=== PATIENT | male | born 1945 | race Caucasian/White ===

== ENCOUNTER 2017-01-08 12:03 | Observation (INO) | payer MEDICARE, OTHER ==
[~2017-01-08] VITALS: Ht 177.8 cm; Wt 90.5 kg
[2017-01-08 13:33] LABS: BASOPHILS 0.3 % (0.0-2.0); EOSINOPHILS 0.7 % (0-7); HEMATOCRIT 44.6 % (42.0-54.0); HEMOGLOBIN 14.9 g/dL (13.5-17.5); IMMATURE GRANULOCYTES 0.2 % (0-5); LYMPHOCYTES 15.9 % (15-50); MCHC 33.4 g/dL (31.0-37.0); MCV 92.7 fL (80.0-100.0); MEAN PLATELET VOLUME 10.9 fL (7.4-10.4); MONOCYTES 5.2 % (2-11); NEUTROPHILS 77.7 % (40-80); PLATELET COUNT 213 10x3/uL (130-400); RBC 4.81 10x6/uL (4.20-6.10); RDW 13.9 % (11.5-14.5); WBC 12.5 10x3/uL (4.8-10.8)
[2017-01-08 13:43] LABS: APTT 24.1 SECONDS (22.8-39.4); INR 1.06 (0.85-1.17); PROTIME 13.7 SECONDS (11.6-15.0)
[2017-01-08 14:03] LABS: ALBUMIN 4.1 g/dL (3.4-5.0); ALKALINE PHOSPHATASE 82 U/L (46-116); ALT (SGPT) 20 U/L (10-68); BILIRUBIN - TOTAL 0.53 mg/dL (0.2-1.3); CALC OSMOLALITY 284 mosm/kg (275-300); CALCIUM 9.4 mg/dL (8.5-10.1); CARBON DIOXIDE 24.1 mmol/L (21.0-32.0); CHLORIDE - SERUM 106 mmol/L (98-107); CREATININE - SERUM 0.8 mg/dL (0.6-1.3); GLUCOSE 91 mg/dL (74-106); POTASSIUM - SERUM 3.8 mmol/L (3.5-5.1); PROTEIN - SERUM 7.5 g/dL (6.4-8.2); SODIUM 143 mmol/L (136-145); UREA NITROGEN 12 mg/dL (7-18); eGFR NON AFRICAN AMERICAN > 90 mL/min (90-120)
[2017-01-08 14:14] LABS: CKMB 1.5 U/L (0.0-3.6); CREATINE KINASE 71 UL (21-232)
[2017-01-08 14:17] LABS: TROPONIN-I < 0.017 ng/mL (0.000-0.060)
[2017-01-08] MEDS ORDERED: ZETIA10 MG PO (17:55)
[2017-01-08] MEDS ORDERED: ZESTORETIC 10/11 TAB PO (17:55)
[2017-01-08] MEDS ORDERED: GEMFIBROZIL600 MG PO (17:58)
[2017-01-08] MEDS ORDERED: NITROQUICK0.4 MG SL (17:59)
--- NOTE | 2017-01-08 18:11 | NUR ---
PT RECUIEVED TO ROOM 2233 VIA WHEELCHAIR AWAKE AND ALERT ORINETD X 3 LUNGS CLAER BILATERALLY BSA X 4 QUADS BILATERAL HAND VEHICLE FARE COLLECTOR EQUAL MOVES ALL EXTREMITES TO COMMAND.
[2017-01-08 18:27] VITALS: BP 142/82; Ht 177.8 cm; Wt 90.5 kg
--- NOTE | 2017-01-08 19:00 | NUR ---
PATIENT IN BED WATCHING TV. HOB 40 DEGREES. AAOX4. RR EVEN AND UNLABORED. 0 S/S OF DISTRESS. DENIES PAIN AT THIS TIME. IV TO LEFT WRIST PATENT WITH NO REDNESS OR SWELLING. SRX1. BED LOW. CALL LIGHT WITHIN REACH.
[2017-01-08 20:01] VITALS: BP 116/68
[2017-01-08 20:30] LABS: CKMB 1.8 U/L (0.0-3.6); CREATINE KINASE 67 UL (21-232)
[2017-01-08 22:40] LABS: CKMB 1.6 U/L (0.0-3.6); CREATINE KINASE 58 UL (21-232); TROPONIN-I 0.027 ng/mL (0.000-0.060)
[2017-01-09] VITALS: BP 112/67
--- NOTE | 2017-01-09 03:53 | NUR ---
PATIENT SLEEPING WITH NO DISTRESS NOTED.
[2017-01-09 04:00] VITALS: BP 97/60
[2017-01-09 06:18] LABS: BASOPHILS 0.6 % (0.0-2.0); EOSINOPHILS 2.2 % (0-7); HEMATOCRIT 42.4 % (42.0-54.0); HEMOGLOBIN 14.2 g/dL (13.5-17.5); IMMATURE GRANULOCYTES 0.3 % (0-5); LYMPHOCYTES 25.9 % (15-50); MCH 31.2 pg (26.0-34.0); MCHC 33.5 g/dL (31.0-37.0); MCV 93.2 fL (80.0-100.0); MEAN PLATELET VOLUME 10.8 fL (7.4-10.4); MONOCYTES 7.8 % (2-11); NEUTROPHILS 63.2 % (40-80); PLATELET COUNT 199 10x3/uL (130-400); RBC 4.55 10x6/uL (4.20-6.10)
[2017-01-09 06:28] LABS: WBC 9.1 10x3/uL (4.8-10.8)
[2017-01-09 06:49] LABS: CALC OSMOLALITY 279 mosm/kg (275-300); CALCIUM 8.7 mg/dL (8.5-10.1); CARBON DIOXIDE 26.9 mmol/L (21.0-32.0); CHLORIDE - SERUM 106 mmol/L (98-107); CKMB 1.2 U/L (0.0-3.6); CREATINE KINASE 61 UL (21-232); CREATININE - SERUM 0.9 mg/dL (0.6-1.3); GLUCOSE 92 mg/dL (74-106); POTASSIUM - SERUM 3.7 mmol/L (3.5-5.1); SODIUM 141 mmol/L (136-145); TROPONIN-I 0.027 ng/mL (0.000-0.060); UREA NITROGEN 10 mg/dL (7-18); eGFR NON AFRICAN AMERICAN 88 mL/min (90-120)
--- NOTE | 2017-01-09 07:30 | NUR ---
RECIEVED PT DURING WALKING ROUNDS. PT RESTING IN BED WITH NO COMPLAINTS OF PAIN OR DISCOMFORT AT THIS TIME. ASSESSMENT DONE PER FLOWSHEET. BED IN LOW POSITION AND CALL LIGHT WITHIN REACH. WILL CONTINUE TO MONITOR.
[2017-01-09 07:57] VITALS: BP 116/72
[2017-01-09 11:10] VITALS: BP 100/71
--- NOTE | 2017-01-09 11:10 | NUR ---
SPOKE WITH PT AT THIS TIME ABOUT DISCHARGE AND INFORMED HIM WE WOULD SPEAK WITH THE DR WHEN HE MADE ROUNDS. PT UNDERSTOOD WILL CONTINUE TO MONITOR.
[2017-01-09] MEDS ORDERED: PROTONIX40 MG PO (12:07)
[2017-01-09] MEDS ORDERED: ASPIRIN325 MG PO (12:08)
--- NOTE | 2017-01-09 13:00 | NUR ---
PATIENT UP AMBULATING IN HALLWAY. NO SIGNS OF DISTRESS NOTED.
--- NOTE | 2017-01-09 13:23 | NUR ---
PT GIVEN DISCHARGE INSTRUCTIONS AT THIS TIME. IV REMOVED CATH INTACT. PT DISCHARGED VIA WHEELCHAIR TO HOME WITH A FAMILY MEMBER.
--- NOTE | 2017-01-14 08:06 | EC ---
PATIENT:TOMAS MOLINA DATE OF SERVICE: 01/08/17 SEX: M MEDICAL RECORD: [id number] DATE OF : 45 LOCATION:D.[facility] AGE OF PATIENT: 71 ADMISSION DATE: 01/08/17 REFERRING PHYSICIAN: INTERPRETING PHYSICIAN: JOHANNA PETERSEN MD ECHOCARDIOGRAM REPORT ECHO CHARGES 4 ECHO COMPLETE CLINICAL DIAGNOSIS: SYNCOPE ECHOCARDIOGRAPHIC MEASUREMENTS (adult normal given) AC root (d.<3.7cm) 3.5 LV Septum d (<1.2 cm> 1.6 Valve Excursion 2.2 LV Septum (systole) 2.3 Left Atria (s.<4.0cm> 3.7 LVPW d(<1.2cm) 1.6 RV (d.<2.3cm) 2.4 LVPW (sytole) 2.4 LV diastole(<5.6CM) 5.1 MV E-F(>70mm/sec) LV systole 2.5 LVOT Diameter 2.1 MV exc.(>10mm) Est.ejection fraction (50-75%) Pericardial Effusion N DOPPLER: LVIT A 118 E 81.0 LA RVSP 18.3 LVOT 112 AOP1/2T 542.0 Asc. Ao 139 RVOT 79.0 RA PA 101 AV Gradient Peak 7.7 AV Mean 3.8 AV Area 3.5 MV Gradient Peak 6.5 MV Mean 2.1 MV Area COMMENTS: Tire Spotter: Yannick MEDELLINOE Stock Layer:1 Dr. Petersen TAPE# PACS DATE OF SERVICE: 01/09/2017 Echocardiogram FINDINGS: 1. Left ventricular chamber size is within normal limits. Left ventricular systolic function is normal. Overall ejection fraction estimated at 60% to 65%. 2. Left atrium, right atrium, and right ventricle chamber sizes are within normal limits. Left atrium measures 3.7 cm. 3. Valvular structures have normal structure and motion. ECHOCARDIOGRAM REPORT [id number] TOMAS MOLINA 4. Doppler interrogation reveals mild to moderate aortic insufficiency. No other valvular insufficiency or stenosis and pulmonary systolic pressure is normal estimated at 18 mmHg. 5. No evidence of pericardial effusion or left ventricular thrombus. TRANSINT:[id number] Voice Confirmation ID: [id number] DOCUMENT ID: [id number] JOHANNA PETERSEN MD at 0806 CC: [id number] DICTATION DATE: 01/09/17 1438 OIL BURNER INSTALLER: 01/09/17 1522 DIS IN 01/09/17 [facility] [address] [id number]
== END 2017-01-09 16:18 | disposition home or self-care (01) ==
LOC: D.ER 12:03 → OBSVTIME 16:01 → D.MS 16:01
PROVIDERS: Emergency Medicine; Nurse Practitioner Acute Care; ADMIT Family Medicine
DX: G45.9 Transient cerebral ischemic attack, unspecified (principal); I95.1 Orthostatic hypotension; R07.9 Chest pain, unspecified; R53.1 Weakness; F17.203 Nicotine dependence unspecified, with withdrawal; E78.5 Hyperlipidemia, unspecified; I73.9 Peripheral vascular disease, unspecified; I10 Essential (primary) hypertension; J44.9 Chronic obstructive pulmonary disease, unspecified

== ENCOUNTER → 2017-01-20 11:54 | Outpatient (CLI) | payer MEDICARE, OTHER ==
[2017-01-08 18:27] VITALS: BMI 28.6
[~2017-01-20 11:54] MED LIST: ASPIRIN325 MG PO; GEMFIBROZIL600 MG PO; NITROQUICK0.4 MG SL; PROTONIX40 MG PO; ZESTORETIC 10/11 TAB PO; ZETIA10 MG PO
== END | disposition home or self-care (01) ==
LOC: D.CT 11:54
DX: I77.9 Disorder of arteries and arterioles, unspecified (principal)

== ENCOUNTER 2017-01-28 05:23 | Inpatient (IN) | payer MEDICARE, OTHER ==
--- NOTE | 2017-01-24 13:06 | HP ---
PATIENT: TOMAS MOLINA MEDICAL RECORD: [id number] ACCOUNT: [id number] LOCATION:[facility] : 45 ADMISSION DATE: 01/28/17 HISTORY AND PHYSICAL EXAMINATION NameTOMAS MOLINA (71yo, M) ID# [id number]. Date/Time01/20/2017 02:[id number]/194[facility] Dept.NPP[facility] ClinicProviderEDLB ALVA MDInsuranceMed Primary: [place] Insurance # : [id number] Referring Provider Name : CIRO LEON Employer Name : UNKNOWN Med Secondary: FOR LIFE ( - MEDICARE SUPPLEMENT) Insurance # : [id number] Employer Name : RETIRED Prescription: ESI1 - Member is eligible. Chief Complaint Carotid stenosis eval for carotid stenosis Patient's Care Team Referring Provider (): CIRO LEON: [address] [place] [address] , [address], [place] [address], , Patient's Pharmacies [facility] (ERX): [phone] [address], , [facility] (MAIL-ORDER, ERX): [address] [facility] [address], , [facility] (ERX): [address] [address], , Vitals BP:110/60 sitting L arm 01/20/2017 02:03 pm 90/50 sitting R arm 01/20/2017 02:04 pmBP Cuff Size:adult 01/20/2017 02:03 pm adult 01/20/2017 02:04 pmHR:76,reg 01/20/2017 02:05 pmHt:5 ft 10 in 01/20/2017 01:57 pmWt:195 lbs 01/20/2017 02:05 pmNotes:has had TIAs 5-6 years including double vision, blurred vision, unexpected nausea. Last had R sided paralysis and facial drooping, speech slurred. Lasted 6-7 minutes, then was resolved.01/20/2017 02:08 pmBMI:28 01/20/2017 02:05 pmAllergies Reviewed Allergies ASPIRIN: OtherINFLUENZA VIRUS VACCINESMedications Reviewed Medications amoxicillin 500 mg capsule Take 1 capsule(s) 3 times a day by oral route for 7 days.09/09/16 Artie Hammondfed DM 2 mg-30 mg-10 mg/5 mL syrup Take 10 mL every 4 hours by oral route as needed.09/09/16 Annie Leon MDbuPROPion HCl XL 150 mg 24 hr tablet, extended release Take 1 tablet EVERY DAY for 1 week, then take 1 tablet twice daily fqwgmtpeql79/11/16 Stef Hammondlopidogrel 75 mg tablet Take 1 tablet(s) every day by oral route.01/20/17 Nicole Taylorfibrozil 600 mg tablet TAKE 1 TABLET TWICE A DAY01/04/17 filledMEDCOisosorbide mononitrate ER 30 mg tablet,extended release 24 hr01/04/17 filledMEDCOlisinopril 20 mg-hydrochlorothiazide 12.5 mg /19/17 filledMEDCOLongs Adult Low Strength ASA 81 mg tablet,delayed release Take 1 tablet(s) every day by oral route.10/16/15 enteredCiro Leon MDmagnesium 250 mg tablet Take 1 tablet(s) every day by oral route.07/10/16 enteredLoren Erickson [place] HISTORY AND PHYSICAL [id number] TOMAS MOLINA Krill Oil 1 capsule daily07/10/16 enteredLoren Tellmetoprolol tartrate 25 mg tablet TAKE 1 TABLET TWICE A DAY01/04/17 filledMEDCOnitroglycerin 0.[address] 1 tablet(s) as needed by sublingual route.10/15/16 filledMEDCOpantoprazole 40 mg tablet,delayed kcihtre89/21/17 filledMEDCOpotassium gluconate 2.5 mEq tablet Take 1 tablet(s) every day by oral route.07/10/16 enteredLoren Tell takes unknown bp med bid as only meds Problems Reviewed Problems Hyperlipidemia Nicotine dependence Essential hypertension Coronary arteriosclerosis Carotid artery stenosis - Onset: 01/20/2017, Bilateral Peripheral vascular disease Sciatica Lumbar radiculopathy Family History Discussed Family History Father- ArthritisMother- Heart disease - Alcoholism - Cerebrovascular accidentMaternal Grandfather- Heart diseasestrong family history for cardiovas. diseaseSocial History Discussed Social History General Education: 2 Year College Marital status: Exercise level: Occasional Smoking Status: Current every day smoker (Notes: pack a day) Smoker (1 PPD) Alcohol intake: Occasional Caffeine intake: Heavy Surgical History Reviewed Surgical History Vascular Surgery - 2014 Past Medical History Discussed Past Medical History Bladder Problems: Y Chest Pain: Y Circulation Problems: Y Coronary Artery Disease: Y Diabetes: Y Dizzy Spells: Y Eye Problems: Y Heart Disease: Y - one stent High Blood Pressure: Y - one unknown med twice daily Pain in legs when walking: Y Peripheral Vascular Disease (PVD): Y - fem-fem bypass surg Rubella, Romansh Measles: Y Documents for Discussion N/A Screening HISTORY AND PHYSICAL [id number] TOMAS MOLINA None recorded. HPI Cerebral Vascular Disease Reported by patient. Quality: paresthesias; seeing double; dizziness; blurred vision Severity: complete loss of strength Duration: has noted for years Onset/Timing: weekly Associated Symptoms: vomiting; difficulty speaking recent episode of right hemiplegia Amaurosis fugax intermittently OS in spite of medical management ROS Patient reports vision change (OS) but reports no dry eyes and no irritation; amaurosis fugax left eye. He reports cough but reports no wheezing, no shortness of breath, and no coughing up blood. He reports no loss of consciousness, no weakness, no numbness, no seizures, no dizziness, and no headaches; recent episode her right hemiplegia aphasia Visual disturbances OS. He reports no fever, no night sweats, no significant weight gain, no significant weight loss, and no exercise intolerance. He reports no difficulty hearing and no ear pain. He reports no frequent nosebleeds and no nose/sinus problems. He reports no sore throat, no blee d ing gums, no snoring, no dry mouth, no mouth ulcers, no oral abnormalities, and no teeth problems. He reports no jugular vein distension and no swollen glands. He reports no chest pain, no arm pain on exertion, no shortness of breath when walking, no shor t ness of breath when lying down, no palpitations, and no known heart murmur. He reports no abdominal pain, no vomiting, normal appetite, no diarrhea, not vomiting blood, no nausea, and no constipation. He reports no incontinence, no difficulty urinating, n o hematuria, and no increased frequency. He reports no muscle aches, no muscle weakness, no arthralgias/joint pain, no back pain, and no swelling in the extremities. He reports no abnormal mole, no jaundice, and no rashes. He reports no depression, no slee p disturbances, feeling safe in relationship, and no alcohol abuse. He reports no fatigue. He reports no swollen glands and no bruising. He reports no runny nose, no sinus pressure, no itching, no hives, and no frequent sneezing. ROS as noted in the HPI Physical Exam Patient is a 71-year-old male. Constitutional: General Appearance well nourished and developed and healthy-appearing. Level of Distress NAD. Ambulation ambulating normally. Cardiovascular: Apical Impulse not displaced or no thrill. Heart Au scultation normal s1 and s2; no murmurs, rubs, or gallops; and RRR. Arterial Pulses no abdominal aorta bruits, femoral bruits, or popliteal bruits and 2+ bilateral, carotid 2+ bilateral, femoral 2+ bilateral, popliteal 2+ bilateral, and dorsalis pedis not palpable (bilaterally); decreased blood pressure right upper extremity 20 mm difference. Edema no edema or varicosities. Lungs: Repiratory Effort no dyspnea. Percussion no dullness or flatness and hyperresonance . Auscultation no wheezing, rhonchi, or rales / crackles and good air movement, CTA except as noted, and decreased breath sounds (bilateral). Abdomen: Bowl Sounds normal. Inspection and Palpation no tenderness, guarding, masses, or rebound tenderness and soft and non-distended. Liver non-tender and no HISTORY AND PHYSICAL [id number] TOMAS MOLINA hepatomegaly. Spleen non-tender and no splenomegaly. Hernia none palpable. Musculoskeletal System: Gait And Stance normal gait and stance. Digits and Nails normal nails and no cyanosis. Neurologic: Cranial Nerves grossly intact. Reflexes DTRs 2+ bilaterally throughout. Sensation grossly intact. Lymph Nodes: Lymph Nodes no cervical LAD, supraclavicular LAD, axillary LAD, or inguinal LAD. Eyes: Lids and Conjunctivae no discharge or pallor and non-injected. Pupils PERRLA. Cornea grossly intact. EOM EOMI. Lens clear. Sclerae non-icteric. Neck: Neck no masses or enlarged lymph nodes and supple, trachea midline, and carotid bruits (bilateral). Thyroid no enlargement or nodules and non-tender. Skin: Inspection and Palpation no rash, lesions, ulcers, jaundice, or abnormal nevi. Assessment / Plan bilateral carotid artery disease ruptured plaque on the left symptomatic Coronary artery disease Peripheral arterial disease Tobacco dependence 1. Carotid artery stenosis I65.29: Occlusion and stenosis of unspecified carotid artery CAROTID STENOSIS: CARE INSTRUCTIONS 2. Peripheral vascular disease I73.9: Peripheral vascular disease, unspecified PERIPHERAL ARTERIAL DISEASE OF THE LEG: CARE INSTRUCTIONS 3. Coronary arteriosclerosis I25.10: Atherosclerotic heart disease of [place] coronary artery without angina pectoris 4. Nicotine dependence F17.200: Nicotine dependence, unspecified, uncomplicated STOPPING SMOKING: CARE INSTRUCTIONS 5. Essential hypertension I10: Essential (primary) hypertension HIGH BLOOD PRESSURE: CARE INSTRUCTIONS LEARNING ABOUT HIGH BLOOD PRESSURE Discussion Notes the patient had a recent episode of right hemiplegia and aphasia and amaurosis fugax OS. He has moderately severe disease bilaterally with a ruptured plaque in the left. He continues to have symptoms despite his medical management. He does not want to take Plavix however He will for a short period of time. He would like to undergo left carotid endarterectomy . I have discussed his disease process with him in detail a s well as the alternative methods of treatment. He discussed left carotid endarterectomy including the expected benefits and risk which included bleeding, infection, stroke, loss of limb, and . He understands all of HISTORY AND PHYSICAL [id number] TOMAS MOLINA the above and wishes to proceed wi th left carotid endarterectomy. PANCHO ALVA MD at 1306 CC: [id number] DICTATION DATE: 01/20/17 1400 CODE NUMBER STAMPER: GARRETT 01/23/17 0830 [id number] [place] [id number]
[2017-01-27 10:40] LABS: HEMATOCRIT 43.5 % (42.0-54.0); HEMOGLOBIN 14.7 g/dL (13.5-17.5); MCH 31.3 pg (26.0-34.0); MCHC 33.8 g/dL (31.0-37.0); MCV 92.8 fL (80.0-100.0); MEAN PLATELET VOLUME 9.9 fL (7.4-10.4); RBC 4.69 10x6/uL (4.20-6.10); RDW 13.4 % (11.5-14.5); WBC 8.2 10x3/uL (4.8-10.8)
[2017-01-27 10:49] LABS: APPEARANCE CLEAR (CLEAR); BILIRUBIN NEGATIVE (NEGATIVE); COLOR YELLOW (YELLOW); GLUCOSE NEGATIVE (NEGATIVE); KETONE NEGATIVE (NEGATIVE); LEUKOCYTE ESTERASE NEGATIVE (NEGATIVE); NITRITE NEGATIVE (NEGATIVE); PROTEIN NEGATIVE (NEGATIVE); SPECIFIC GRAVITY 1.015 (1.005-1.020); UROBILINOGEN NORMAL (NORMAL)
[2017-01-27 11:00] LABS: ALBUMIN 3.9 g/dL (3.4-5.0); ALKALINE PHOSPHATASE 82 U/L (46-116); ALT (SGPT) 23 U/L (10-68); CALC OSMOLALITY 283 mosm/kg (275-300); CALCIUM 8.9 mg/dL (8.5-10.1); CARBON DIOXIDE 30.1 mmol/L (21.0-32.0); CHLORIDE - SERUM 105 mmol/L (98-107); GLUCOSE 117 mg/dL (74-106); PROTEIN - SERUM 7.4 g/dL (6.4-8.2); SODIUM 142 mmol/L (136-145); UREA NITROGEN 12 mg/dL (7-18); eGFR NON AFRICAN AMERICAN 78 mL/min (90-120)
[2017-01-27 11:03] LABS: INR 1.04 (0.85-1.17); PROTIME 13.4 SECONDS (11.6-15.0)
[2017-01-28] VITALS (18 sets, daily range): BP systolic 102–139; BP diastolic 60–80; Ht 177.8 cm; Wt 92.5 kg
[~2017-01-28] VITALS: Ht 177.8 cm; Wt 92.5 kg
[~2017-01-28 05:23] MED LIST changes: +ASPIRIN EC81 M1 PO; +PLAVIX75 MG PO
--- NOTE | 2017-01-28 11:13 | NUR ---
RECIEVED PT TO ROOM FROM OR. ATTACHED TO CM. VSS AT THIS TIME. LEFT NECK DRESSING C/D/I. MINIAMAL SWELLING NOTED. ICE PACK PLACED OVER INCISION SITE. RECIEVING O2 VIA SIMPLE MASK AT 9L. R-DLSC DRESSING C/D/I INFUSING PLASMALTYE AT 100CC/HR. ARTERIAL LINE IN PLACE TO LEFT RADIAL. HAND WITH GOOD SENSATION AND WARM TO TOUCH. F/C PATENT TO GRAVITY. NICOLAS/SCDS IN PLACE. INVOS MONITOR READING L- 82 AND R- 83. ASSESSMENT COMPLETE PER FLOWSHEET. WILL CONT TO ASSESS FOR CHANGES THROUGHOUT SHIFT. CALL LIGHT IN REACH. BED IN LOW POSITION.
--- NOTE | 2017-01-28 11:30 | NUR ---
AT BEDSIDE. UPDATE PROVIDED PER DR. ALVA.
--- NOTE | 2017-01-28 12:30 | NUR ---
F/C REMOVED PER ORDERS OF DR. ALVA. CATH INTACT. NO ISSUES NOTED UPON REMOVAL.
--- NOTE | 2017-01-28 13:00 | NUR ---
FRESH ICE PACK PLACED OVER INCISION. OFFERED SOME WATER. DENIES FURTHER NEEDS. CALL LIGHT IN REACH.
--- NOTE | 2017-01-28 13:00 | NUR ---
PT RESTING QUIETLY AT THIS TIME. DENIES NEEDS. CALL LIGHT IN REACH.
--- NOTE | 2017-01-28 15:00 | NUR ---
REASSSESMENT COMPLETE PER FLOWSHEET. NO CHANGE NOTED AT THIS TIME.
--- NOTE | 2017-01-28 17:00 | NUR ---
DINNER PLACED ON BEDSIDE TABLE. FRESH ICE WATER PROVIDED.
--- NOTE | 2017-01-28 19:20 | NUR ---
REPORT REC'D AND CARE ASSUMED, REC'D PT RESTING IN BED ON O2 @ 5LITERS VIA NC, AWAKENS TO VERBAL STIMULI, ORIENTED X 4, TONGUE MIDLINE, BILAT PIECE PRESSER EQUAL AND STRONG, RDLSCL DRSG CDI WITH PLASMALYTE @ 30CC/HR AND ZINACEF @ 11.4CC/HR, LEFT RADIAL ANNABELLE WITH FLEXION BOARD IN USE, LEVELED AND ZEROED WITH RETURN OF APPROPRIATE WAVEFORM, PT DENIES PAIN OR NEEDS, SR UP X 2, BED IN LOW POSITION, CALL LIGHT IN REACH.
--- NOTE | 2017-01-28 21:10 | NUR ---
EVENING MEDS GIVEN, NO VISITORS IN AT THIS TIME.
--- NOTE | 2017-01-28 23:20 | NUR ---
REASSESSMENT COMPLETED, PT PROVIDED PT GUIDE FOR TV CHANNELS AVAILABLE, 175 EMPTIED FROM URINAL, BILAT GLUING MACHINE OPERATOR AUTOMATIC EQUAL AND STRONG, TONGUE MIDLINE, PT DENIES PAIN, VSS, WILL MONITOR FOR CHANGES.
[2017-01-29] VITALS (15 sets, daily range): BP systolic 108–150; BP diastolic 60–80
--- NOTE | 2017-01-29 00:15 | NUR ---
PT AWAKE WATCHING TV, RESTLESS IN BED, STATES " MY NECK, HEAD, AND BACK ARE STARTING TO ACHE", TRAMADOL GIVEN FOR DISCOMFORT, PT REPOSITIONED SELF UP IN BED, ICE WATER PROVIDED ON REQUEST
--- NOTE | 2017-01-29 02:00 | NUR ---
PT SLEEPING SOUNDLY AT THIS TIME, VSS, VISIBLE TO NURSES STATION.
--- NOTE | 2017-01-29 03:30 | NUR ---
REASSESSMENT COMPLETED, NO CHANGES FROM PREVIOUS ASSESSMENT, VSS
--- NOTE | 2017-01-29 04:30 | NUR ---
NO CHANGES IN STATUS.
--- NOTE | 2017-01-29 05:50 | NUR ---
CINDI HARDY AT BS, DELANEY DRAIN DC'D USING STERILE TECHNIQUE, PRESSURE HELD SITE COVERED WITH 2X2'S X 2 AND TEGADERM, PT TOLERATED PROCEDURE WELL.
--- NOTE | 2017-01-29 06:00 | NUR ---
PT RESTING QUIETLY WATCHING TV, VSS, NO VISITORS IN AT THIS TIME, LEFT UPPER CHEST DRSG CDI
--- NOTE | 2017-01-29 07:15 | NUR ---
REPORT RECIEVED FROM POLICE ACADEMY INSTRUCTOR NURSE. PT RESTING QUIETLY. NO S/SX OF ACUTE DISTRESS NOTED AT THIS TIME. ASSESMENT COMPELTE PER FLOWSHEET. CALL LIGHT IN REACH. BED IN LOW POSITION. WILL CONT TO ASSESS.
--- NOTE | 2017-01-29 09:00 | NUR ---
DR. ALVA AT BEDSIDE. INSTRUCTED TO REMOVE A-LINE. 0915- ANNABELLE REMOVED. CATH INTACT. PRESSURE APPLIED FOR 3 MIN. OPSITE DRESSING PLACED OVER SITE. NO F/C.
--- NOTE | 2017-01-29 12:00 | NUR ---
AT BEDSIDE. UPDATE PROVIDED.
--- NOTE | 2017-01-29 15:00 | NUR ---
DISCHARGE INSTRUCTIONS REVIEWED WITH PT. VERBALIZED UNDERSTANDING. QUESTIONS ANSWERED. R DL SC REMOVED PER ORDERS. CATH INTACT. NO ISSUES NOTED UPON REMOVAL. OPSISTE DRESSING PLACED OVER SITE.
--- NOTE | 2017-01-29 15:16 | NUR ---
PT DRESSED AND READY TO GO. AT FRONT ENTRANCE WITH VEHICLE. WILL TRANSPORT VIA W/C.
--- NOTE | 2017-01-29 17:21 | OP ---
PATIENT NAME: TOMAS MOLINA [facility] MEDICAL RECORD: [id number] :45 LOCATION:[facility] ADMISSION DATE:01/28/17 SURGEON: PHILLIP ALVA MD DATE OF OPERATION: 01/28/2017 SURGEON: Phillip Alva MD. ANESTHESIA: General endotracheal, Dr. Lombardi. OPERATION PERFORMED: Left carotid endarterectomy with patch angioplasty. PREOPERATIVE DIAGNOSIS: Symptomatic left carotid artery disease. POSTOPERATIVE DIAGNOSIS: Severe stenosis of the left internal carotid artery with ruptured plaque and multiple areas of old ulceration and one area of fresh clot. INDICATION FOR OPERATION: Symptomatic carotid stenosis. FINDINGS OF THE OPERATION: The left carotid plaque was severely stenotic as well as multiple areas of ruptured plaque. There was also heavily calcified plaque. ESTIMATED BLOOD LOSS: Less than 100 mL. DESCRIPTION OF PROCEDURE: After informed consent, adequate preoperative medication and evaluation, the patient was brought to the operating room, placed on the table in the supine position. After induction of general endotracheal anesthesia and application of appropriate monitoring devices, the left neck and chest were prepped and draped in a sterile field, utilizing Betadine scrub, alcohol and Betadine solution, a Betadine-impregnated drape was also used. An oblique incision was made in the skin crease. Dissection was carried down the fascia. Hemostasis maintained with electrocautery. The facial vein was divided and ligated. The common carotid, internal and external carotid arteries were dissected free from surrounding structures, protecting the neurological structures. The plaque progressed well into the internal carotid artery. The patient was given a calculated dose of heparin after 3 minutes, clamps were applied after 2 minutes and no EEG changes. The arteriotomy was made and extended with Leal scissors. Artery underwent endarterectomy sharply. The distal end had continued plaque, the clamp had to be further cephalad and the arteriotomy extended. This last remainder of plaque was removed and feathered out nicely. The artery was irrigated and underwent extensive debridement utilizing a CorMatrix vascular patch and running 7-0 Prolene suture. The arteriotomy was closed with patch angioplasty technique. All maneuvers to remove trapped air were performed. The clamps were removed sequentially. There was no EEG change. The patient was given a calculated dose of protamine to reverse the heparin. Hemostasis was achieved. The wound was irrigated with copious amounts of antibiotic solution and normal saline. There was no active bleeding. Instrument count and sponge count were correct times 2. A #7 Franck-Bolden drain was left in the depth of wound and brought through the base of the neck. Neck was again irrigated. Instrument count and sponge counts were correct. Neck was closed in layers utilizing 3-0 Vicryl on the platysma and 5-0 subcuticular Monocryl on the skin. Sterile dressings were applied. The patient tolerated the procedure well and was transferred to cardiovascular recovery in satisfactory condition. OPERATIVE REPORT [id number] TOMAS MOLINA TRANSINT:[id number] Voice Confirmation ID: [id number] DOCUMENT ID: [id number] PHILLIP ALVA MD at 1721 CC: [id number] DICTATION DATE: 01/28/17 1111 PARTS PERSON: 01/28/17 1816 DIS IN 01/29/17 [id number] [place] [address]
== END 2017-01-29 15:19 | disposition home or self-care (01) | DRG 39 ==
LOC: D.SDCHOLD 05:23 → D.CVICU 05:23 → D.SDCHOLD 07:30 → D.CVICU 11:16
PROVIDERS: ADMIT Internal Medicine Cardiovascular Disease
PROC: 03UL0JZ Supplement Left Internal Carotid Artery with Synthetic Substitute, Open Approach (ICD-10-PCS; 2017-01-28)
PROC: 03CL0ZZ Extirpation of Matter from Left Internal Carotid Artery, Open Approach (ICD-10-PCS; principal; 2017-01-28 07:30)
DX: I65.22 Occlusion and stenosis of left carotid artery (principal); E11.9 Type 2 diabetes mellitus without complications; R55 Syncope and collapse; I25.10 Atherosclerotic heart disease of native coronary artery without angina pectoris; Z95.5 Presence of coronary angioplasty implant and graft; I73.9 Peripheral vascular disease, unspecified; I10 Essential (primary) hypertension; F17.200 Nicotine dependence, unspecified, uncomplicated

== ENCOUNTER → 2020-04-24 | Emergency (ER) | payer MEDICARE, OTHER ==
[2017-01-28 11:54] VITALS: Ht 177.8 cm; Wt 113.6 kg
[~2020-04-24] VITALS: Ht 177.8 cm; Wt 113.6 kg
[2020-04-24 12:51] LABS: BASOPHILS 0.1 % (0-2); EOSINOPHILS 0.5 % (0-7); HEMATOCRIT 37.9 % (42.0-54.0); HEMOGLOBIN 11.6 g/dL (13.5-17.5); IMMATURE GRANULOCYTES 1.6 % (0-5); LYMPHOCYTES 4.4 % (15-50); MCH 30.1 pg (26.0-34.0); MCHC 30.6 g/dL (31.0-37.0); MCV 98.2 fL (80.0-100.0); MEAN PLATELET VOLUME 9.1 fL (7.4-10.4); MONOCYTES 3.9 % (2-11); NEUTROPHILS 89.5 % (40-80); RBC 3.86 10x6/uL (4.20-6.10); RDW 13.8 % (11.5-14.5)
[2020-04-24 12:54] LABS: BILIRUBIN NEGATIVE (NEGATIVE); GLUCOSE NEGATIVE (NEGATIVE); KETONE NEGATIVE (NEGATIVE); NITRITE NEGATIVE (NEGATIVE); UROBILINOGEN NORMAL (NORMAL)
[2020-04-24 12:55] LABS: CALC OSMOLALITY 281 mosm/kg (275-300); CALCIUM 8.6 mg/dL (8.5-10.1); CARBON DIOXIDE 39.3 mmol/L (21.0-32.0); CHLORIDE - SERUM 102 mmol/L (98-107); CREATININE - SERUM 1.2 mg/dL (0.6-1.3); GLUCOSE 133 mg/dL (74-106); PLATELET COUNT 406 10x3/uL (130-400); POTASSIUM - SERUM 5.5 mmol/L (3.5-5.1); SODIUM 138 mmol/L (136-145); UREA NITROGEN 24 mg/dL (7-18); eGFR NON AFRICAN AMERICAN 63 mL/min (90-120)
[2020-04-24 12:56] LABS: APTT 32.3 SECONDS (22.8-39.4); INR 1.99 (0.85-1.17); PROTIME 22.3 SECONDS (11.6-15.0)
[2020-04-24 13:20] LABS: ALBUMIN 2.6 g/dL (3.4-5.0); ALKALINE PHOSPHATASE 88 U/L (30-120); ALT (SGPT) 75 U/L (10-68); BILIRUBIN - TOTAL 0.56 mg/dL (0.2-1.3); CKMB 1.5 U/L (0.0-3.6); CREATINE KINASE 33 UL (21-232); MAGNESIUM - SERUM 2.4 mg/dL (1.8-2.4); PROTEIN - SERUM 5.7 g/dL (6.4-8.2); THYROID STIMULATING HORMONE 6.47 uIU/mL (0.36-3.74)
[2020-04-24 13:24] LABS: TROPONIN-I 0.073 ng/mL (0.000-0.060)
[2020-04-24 13:32] VITALS: BP 136/63
== END ==
LOC: D.ER 12:13
PROVIDERS: Family Medicine
DX: J96.91 Respiratory failure, unspecified with hypoxia (principal); J81.1 Chronic pulmonary edema; Z86.73 Personal history of transient ischemic attack (TIA), and cerebral infarction without residual deficits; I10 Essential (primary) hypertension

== ENCOUNTER 2020-05-03 14:00 | Inpatient (IN) | payer MEDICARE, OTHER ==
[~2020-05-03] VITALS: Ht 177.8 cm; Wt 86.2 kg
[2020-05-03 18:06] VITALS: BP 159/75; BMI 27.3
--- NOTE | 2020-05-04 04:59 | NUR ---
PT DRSG TO CHANGE RIGHT SIDE YELLOW EXUDATE NOTED, DRSG TO LEFT SIDE DRIED BLOOD HEALING WELL, DID NOT REMOVE PRESSURE DRSG TO RIGHT GROIN, CLEANED CHEST DRSG WITH WOUND JEWEL BEARING TURNER REDRESSED WITH 4X4 GAUZE AND TAPE
[2020-05-04 06:58] LABS: BASOPHILS 0.7 % (0-2); EOSINOPHILS 5.5 % (0-7); HEMOGLOBIN 12.3 g/dL (13.5-17.5); IMMATURE GRANULOCYTES 0.2 % (0-5); LYMPHOCYTES 15.5 % (15-50); MCH 29.8 pg (26.0-34.0); MCHC 31.5 g/dL (31.0-37.0); MCV 94.4 fL (80.0-100.0); MEAN PLATELET VOLUME 9.7 fL (7.4-10.4); MONOCYTES 9.1 % (2-11); RBC 4.13 10x6/uL (4.20-6.10); RDW 13.6 % (11.5-14.5); WBC 10.5 10x3/uL (4.8-10.8)
[2020-05-04 06:59] LABS: PLATELET COUNT 250 10x3/uL (130-400)
[2020-05-04 07:41] LABS: ANION GAP 9.9 mmol/L (8-16); CALCIUM 8.8 mg/dL (8.5-10.1); CARBON DIOXIDE 33.1 mmol/L (21.0-32.0); CREATININE - SERUM 1.3 mg/dL (0.6-1.3)
[2020-05-04 07:54] VITALS: BP 132/65
[2020-05-04 12:39] VITALS: Ht 177.8 cm; Wt 86.2 kg
[2020-05-04 20:00] VITALS: BP 156/66
--- NOTE | 2020-05-04 20:00 | NUR ---
PATIENT RECEIVED SITTING UP IN BED WATCHING TV. ASSESSMENT & VITAL SIGNS DONE. NO C/O PAIN OR DISTRESS AT THIS TIME. URINAL & CALL LIGHT WITHIN REACH. WILL CONTINUE TO MONITOR.
--- NOTE | 2020-05-05 01:31 | NUR ---
PATIENT EYES CLOSED. RESPIRATIONS 18 & EVEN. MELATONIN EFFECTIVE AT THIS TIME. BED LOW. ALARM ON. URINAL & CALL LIGHT WITHIN REACH. WILL CONTINUE TO MONITOR.
--- NOTE | 2020-05-05 02:05 | NUR ---
I have reviewed this patient and I concur with the Shift Assessment completed by the Licensed Practical Nurse today this shift.
--- NOTE | 2020-05-05 05:54 | NUR ---
PATIENT EYES CLOSED. RESPIRATIONS 18 & EVEN. BED LOW. CALL LIGHT WITHIN REACH. WILL CONTINUE TO MONITOR.
[2020-05-05 08:00] VITALS: BP 121/69
--- NOTE | 2020-05-05 11:59 | NUR ---
SITTING UP IN WC IN ROOM TALKING TO ROOM MATE. DENIES PAIN OR INCREASED SOB.
--- NOTE | 2020-05-05 20:00 | NUR ---
PATIENT RECEIVED SITTING UP IN BED WATCHING TV. ASSESSMENT & VITAL SIGNS DONE. NO C/O PAIN OR DISTRESS. ALL WOUNDS DRY & HAS SCABS. BED LOW. ALARM ON. CALL LIGHT WITHIN REACH. WILL CONTINUE TO MONITOR.
[2020-05-05 20:18] VITALS: BP 153/74
--- NOTE | 2020-05-06 02:09 | NUR ---
I have reviewed this patient and I concur with the Shift Assessment completed by the Licensed Practical Nurse today this shift.
--- NOTE | 2020-05-06 02:26 | NUR ---
PATIENT EYES CLOSED. RESPIRATIONS 18 & EVEN. BED LOW. ALARMON. CALL LIGHT WITHIN REACH. WILL CONTINUE TO MONITOR.
[2020-05-06 08:00] VITALS: BP 131/65
--- NOTE | 2020-05-06 17:20 | NUR ---
LAYING IN BED WATCHING TV. DENIES SOB OR CHEST PAIN. CHEST INCISION IS OPEN TO AIR. CALL LIGHT IN REACH
[2020-05-06 19:46] VITALS: BP 123/84
--- NOTE | 2020-05-06 20:00 | NUR ---
PATIENT RECEIVED SITTING UP IN BED WATCHING TV. ASSSESSMENT & VITAL SIGNS DONE. BED LOW. URINAL & CALL LIGHT WITHIN REACH. WILL CONTINUE TO MONITOR.
--- NOTE | 2020-05-07 03:25 | NUR ---
I have reviewed this patient and I concur with the Shift Assessment completed by the Licensed Practical Nurse today this shift.
[2020-05-07 07:43] LABS: BASOPHILS 0.5 % (0-2); HEMATOCRIT 38.3 % (42.0-54.0); HEMOGLOBIN 11.7 g/dL (13.5-17.5); IMMATURE GRANULOCYTES 0.3 % (0-5); LYMPHOCYTES 13.5 % (15-50); MCH 28.8 pg (26.0-34.0); MCHC 30.5 g/dL (31.0-37.0); MCV 94.3 fL (80.0-100.0); MEAN PLATELET VOLUME 9.8 fL (7.4-10.4); MONOCYTES 6.7 % (2-11); PLATELET COUNT 298 10x3/uL (130-400); RBC 4.06 10x6/uL (4.20-6.10); RDW 13.4 % (11.5-14.5); WBC 10.2 10x3/uL (4.8-10.8)
[2020-05-07 08:13] LABS: ANION GAP 8.9 mmol/L (8-16); CALCIUM 8.9 mg/dL (8.5-10.1); CARBON DIOXIDE 30.8 mmol/L (21.0-32.0); CREATININE - SERUM 1.3 mg/dL (0.6-1.3); DIGOXIN 0.72 ng/mL (0.90-2.00); POTASSIUM - SERUM 4.7 mmol/L (3.5-5.1)
[2020-05-07 08:14] VITALS: BP 178/82
--- NOTE | 2020-05-07 08:21 | NUR ---
ALERT, SITTING IN WC EATING BREAKFAST. NO DISTRESS NOTED.
--- NOTE | 2020-05-07 12:37 | NUR ---
SITTING IN WC EATING LUNCH. NO C/O PAIN. CL IN REACH. O2 DURING THERAPY ON 2L WAS 94. ON RA WHILE AMBULATING O2 SAT WAS 91. TRYING TO WEAN OFF OXYGEN PER DR GONZALEZ. OXYGEN AT 1L SITTING IN CHAIR.
--- NOTE | 2020-05-07 17:51 | NUR ---
NO CHANGE IN ASSESSMENT.SITTING IN WC EATING DINNER. NO DISTRESS NOTED. CL IN REACH.
[2020-05-07 20:20] VITALS: BP 154/70
--- NOTE | 2020-05-07 20:20 | NUR ---
ASSESSMENT PER FLOW SHEET, VS OBTAINED, PT REPROTS FLATUS, BM TODAY AND USING URINAL WITH NO DIFFICULTY, PT DENIES NEEDS OR PAIN AT THIS TIME, FALL PRECAUTIONS IN PLACE
--- NOTE | 2020-05-07 21:56 | NUR ---
PT RESTING WITH EYES CLOSED, AROUSES TO SOFT VERBAL STIMULATION, ADM 2100 MEDS PO PER MD ORDERS, SEE EMAR, WITH FRESH H20, PT REQUESTED AND PROVIDED WARM BLANKET, DENIES FURTHER NEEDS OR PAIN
--- NOTE | 2020-05-07 22:33 | NUR ---
PT RESTING WITH EYES CLOSED, RESP QUIET, NO DISTRESS NOTED, LEFT UNDISTURBED AT THIS TIME, FALL PRECAUTIONS IN PLACE
--- NOTE | 2020-05-08 00:30 | NUR ---
PT RESTING WITH EYES CLOSED, RESP QUIET, NO DISTRESS NOTED, LEFT UNDISTURBED AT THIS TIME, FALL PRECAUTIONS IN PLACE
--- NOTE | 2020-05-08 02:45 | NUR ---
PT SITTING UP IN WC AT THIS TIME, REPORTS THAT HE IS READY TO GET BACK INTO BED, PT BACK TO BED PER SELF, GAIT STEADY, EMPTIED 150MLS OF MOD YELLOW URINE FROM URINAL, PT DENIES FURTHER NEEDS OR PAIN, FALL PRECAUTIONS IN PLACE
--- NOTE | 2020-05-08 04:30 | NUR ---
PT RESTING WITH EYES CLOSED, RESP QUIET, NO DISTRESS NOTED, LEFT UNDISTURBED AT THIS TIME, FALL PRECAUTIONS IN PLACE, EMPTIED 325 FROM URINAL
--- NOTE | 2020-05-08 05:37 | NUR ---
PT REPORTS A LITTLE PAIN FROM HEALING CHEST TUBE INC, DRESSING CHANGED, PT DENIES FURTHER NEEDS
--- NOTE | 2020-05-08 07:30 | NUR ---
AWAKE.DENIES NEEDS.INCISION TO STERNUM HEALING WELL.WILL CONTINUE WITH CURRENT PLAN OF CARE.CL N EASY REACH,BED IN LOW POSITION.BED ALARM ON AND WORKING.
[2020-05-08 08:00] VITALS: BP 154/88
--- NOTE | 2020-05-08 16:27 | NUR ---
PATIENT ADMITTED TO [facility] FROM [facility]. DR. LEON IS HIS PCP. DISCHARGE PLANS ARE FOR PATIENT TO RETURN HOME . WILL CONTINUE TO FOLLOW WITH PATIENT.
[2020-05-08 19:26] VITALS: BP 118/70
--- NOTE | 2020-05-08 19:51 | NUR ---
RECIEVED UP IN BED WITH EYES OPEN AND TV ON. ALERT AND ORIENTED X4. UP AD TREMAYNE TO B/R. AKUTAN. POST CABG WITH SCATTERED SCABED AREAS ACROSS CHEST. VOICES EXCITMENT ABOUT GOING HOME TOMORROW. DENIES ANY NEEDS OR PAIN.
--- NOTE | 2020-05-09 08:00 | NUR ---
SITTING UP IN WC IN ROOM FOR BREAKFAST. DENIES NEEDS OR C/O. CHEST INCISION IS INTACT WITH NO S/S INFECTION. TEACHING DONE WITH PT REGUARDING STERNAL PRECAUTIONS. HE STATES UNDERSTANDING
[2020-05-09 08:27] VITALS: BP 155/70
--- NOTE | 2020-05-09 10:59 | NUR ---
SITTING UP IN WC IN ROOM. IS SCHEDULED TO DC TODAY
[2020-05-09] MEDS ORDERED: LIPITOR20 MG PO (12:03)
[2020-05-09] MEDS ORDERED: ELIQUIS5 MG PO (12:03)
[2020-05-09] MEDS ORDERED: LANOXIN125 MCG PO (12:03)
[2020-05-09] MEDS ORDERED: LASIX40 MG PO (12:04)
[2020-05-09] MEDS ORDERED: K-DUR20 MEQ PO (12:04)
--- NOTE | 2020-05-09 12:05 | RHP ---
PATIENT: TOMAS MOLINA [facility] MEDICAL RECORD: [id number] ACCOUNT: [id number] LOCATION:[facility]1119 : 45 ADMISSION DATE: 05/03/20 REHABILITATION HISTORY AND PHYSICAL EXAMINATION POST ADMISSION PHYSICIAN EXAMINATION ADMITTING DIAGNOSIS: Subclavian stenosis and respiratory distress. HISTORY OF PRESENT ILLNESS: The patient is a 74-year-old gentleman who is status post coronary artery bypass grafting times 4. The patient had problems with some subclavian stenosis. He was discharged home on 04/19/2020 and was doing well until a few days prior to this right before he had been having worsening dyspnea on exertion and orthopnea. Called EMS, he was brought to the ED. He had been intubated upon transfer. They were unable to get a good blood pressure on him at arrival secondary to subclavian stenosis. Therefore, an A-line was placed. Chest x-ray showed large bilateral pleural effusions. The patient had bilateral chest tubes placed. The patient had a COVID test, which was negative. His blood counts actually looked pretty good. He was noted to have some elevation of his white count during his stay, but this actually trended down. On 05/01/2020, he underwent heart catheterization with evidence of lightheadedness and subclavian steal. He was noted to have an inclusion right subclavian. He was found to have subclavian stenosis. He underwent a stent per Dr. Parra on 05/01/2020. The patient was noted to have a small right apical pneumothorax, which appeared to be similar to a minimally increased compared to radiographs that have been done prior to his chest tube removal. The patient did have a slight rise in some of his lab values during this time. The patient was reevaluated post-procedure on 05/02/2020. He is now requiring min assist to standby assist with transfers, bed mobility, and ADLs. He does need some supervision with eating and grooming. He is requiring PT for some moderate instability in his gait. He has been walking behind a rolling wheelchair with O2 tank. The patient has ambulated total of 180 feet. The patient and his family and the MD do not feel like he is ready to go home yet. Barriers to return home at this time include an increased risk with continued pulmonary exacerbations complications secondary to his recent CABG. The patient has a goal to return back to playing golf and pickleball along with taking care of his . He will require close MD supervision for following lab values, renal functions, etc. COMORBIDITIES: In this patient include pulmonary edema, subclavian stenosis, acute respiratory failure, atrial fib, anemia, coronary artery bypass grafting, decrease in mobility, decrease in physical function, dehydration, hyperlipidemia and respiratory failure. PAST MEDICAL HISTORY: Significant for coronary artery disease. He has got a history of subclavian stenosis. PAST SURGICAL HISTORY: Please see previous charts. ALLERGIES: CHANTIX, INFLUENZA, PNEUMOCOCCAL VACCINE. CURRENT MEDICATIONS: Include digoxin 0.25 mg daily, potassium 20 mEq daily, metoprolol 100 mg b.i.d., Eliquis 5 mg b.i.d., Lipitor 40 mg at bedtime, nitroglycerin 0.4 mg as needed for shortness of breath or chest pain, furosemide 40 mg daily, Colace 100 mg b.i.d. and Dulcolax suppositories. HISTORY AND PHYSICAL [id number] TOMAS MOLINA HABITS: No alcohol or tobacco use. FAMILY HISTORY: Noncontributory. SOCIAL HISTORY: The patient hopes to return back home and get back to his prior level of functioning. REVIEW OF SYSTEMS: GENERAL: Does complain of weakness and fatigue. HEENT: Denies cold, cough, or congestion. CARDIOVASCULAR: Denies any chest pain. PHYSICAL EXAMINATION: VITAL SIGNS: Stable, afebrile. GENERAL: A well-developed elderly gentleman, in no acute distress upon exam. HEENT: Normocephalic and atraumatic. Mucosa moist. NECK: Supple. No lymphadenopathy. LUNGS: Clear in upper ruelas. HEART: Irregular rate and rhythm. ABDOMEN: Soft, benign, and nondistended. Positive bowel sounds times 4. EXTREMITIES: No clubbing, cyanosis or edema. NEUROLOGIC: Does have decreased musculoskeletal strength in his legs. LABORATORY DATA: White count is 10.5, H&H of 12 and 39, and platelet count is 250. Sodium 140, potassium 5.0, BUN and creatinine of 20 and 1.3 and blood sugar is noted to be 99. 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 The patient has potential to make improvement. We instituted the following multiple disciplinary therapies including, but not limited to physical, occupational, respiratory, speech, nutritional services, prosthetics and orthotics. Given his complex medical condition and risk for more complications, rehabilitation services cannot be provided at a low level of care such as residential facility. PLAN: 1. Admit to [facility] for inpatient therapy to include the following disciplines; A. Physical therapy to improve gait, all transfer skills and bed mobility to a modified independent level. B. Occupational therapy to include activities of daily living. C. Case management to help with discharge planning and placement options. D. Nutrition to assist with nutritional needs. E. Rehabilitation nursing to assist in monitoring the patient's underlying medical conditions and to assist with any type of bowel or bladder management. 2. The patient's current medication and medical care will be continued. 3. Placed on standard fall precautions. 4. The patient's stay is approximately 7-10 days. 5. We will discuss this patient during care team staff meeting this week. TRANSINT:[id number] Voice Confirmation ID: [id number] DOCUMENT ID: [id number] DONALD notes whether there has been none or any medical/functional HISTORY AND PHYSICAL [id number] TOMAS MOLINA change since admission: - No change since prescreen. DONALD attests patient continues to be appropriate for IRF: - Continues to be appropriate. LULY GONZALEZ MD at 1205 CC: [id number] DICTATION DATE: 05/04/20 0810 LABORER ELECTROPLATING: 05/04/20 1412 ADM IN [facility] [address] [id number]
--- NOTE | 2020-05-09 13:49 | NUR ---
DC HOME WITH ALL PERSONAL ITEMS. CAME AND GOT PT. LEFT FLOOR IN WC. REVIEWED MEDS AND DC APPTS. DENIES QUESTIONS. MEDS CALL IN TO PHARMACY
--- NOTE | 2020-05-09 15:20 | NUR ---
PATIENT DISCHARGED HOME TODAY WITH SPOUSE. PATIENT DECLINES HOME HEALTH AND ANY DME NEEDS AT THIS TIME. ISABELA SIGNED , IMM SERVED AND EXPLAINED, ONE GIVEN TO PATIENT AND ONE FILED IN CHART. 05/15/20 @ 9:40. PATIENT HAS PENDING APPOINTMENT WITH PHYSICIAN IN [place]. DC INSTRUCTIONS FAXED TO PCP AND REVIEWED WITH PATIENT PER PRIMARY NURSE.
== END 2020-05-09 11:30 | disposition home or self-care (01) | DRG 189 ==
LOC: D.REHAB 14:00
PROVIDERS: ADMIT Emergency Medicine; ATTEND Emergency Medicine
DX: J96.00 Acute respiratory failure, unspecified whether with hypoxia or hypercapnia (principal); J81.1 Chronic pulmonary edema; I48.20 Chronic atrial fibrillation, unspecified; J90 Pleural effusion, not elsewhere classified; G72.9 Myopathy, unspecified; I77.1 Stricture of artery; D64.9 Anemia, unspecified; Z95.1 Presence of aortocoronary bypass graft; E86.0 Dehydration; E78.5 Hyperlipidemia, unspecified; R53.81 Other malaise; I10 Essential (primary) hypertension; R53.1 Weakness; I73.9 Peripheral vascular disease, unspecified

== ENCOUNTER 2020-12-06 16:56 | Inpatient (IN) | payer MEDICARE, OTHER ==
[~2020-12-06] VITALS: Ht 177.8 cm; Wt 83.5 kg
[~2020-12-06 16:56] MED LIST changes: +ELIQUIS5 MG PO; +K-DUR20 MEQ PO; +LANOXIN125 MCG PO; +LASIX40 MG PO; +LIPITOR20 MG PO
[2020-12-06] MEDS ORDERED: METOPROLOL TART25 MG PO (17:28)
[2020-12-06 17:53] LABS: BILIRUBIN NEGATIVE (NEGATIVE); KETONE NEGATIVE (NEGATIVE); NITRITE NEGATIVE (NEGATIVE); UROBILINOGEN NORMAL mg/dL (< 2)
[2020-12-06 18:00] LABS: BASOPHILS 0.5 % (0-2); EOSINOPHILS 1.1 % (0-7); HEMATOCRIT 38.2 % (42.0-54.0); IMMATURE GRANULOCYTES 0.4 % (0-5); LYMPHOCYTE ABS# 1.84 10x3/uL (1.32-3.57); LYMPHOCYTES 19.1 % (15-50); MCH 30.7 pg (26.0-34.0); MCV 90.1 fL (80.0-100.0); MEAN PLATELET VOLUME 10.3 fL (7.4-10.4); MONOCYTES 5.1 % (2-11); NEUTROPHIL ABS# 7.09 10x3/uL (1.78-5.38); NEUTROPHILS 73.8 % (40-80); RBC 4.24 10x6/uL (4.20-6.10); RDW 13.4 % (11.5-14.5); WBC 9.6 10x3/uL (4.8-10.8)
[2020-12-06 18:01] LABS: BACTERIA NONE SEEN HPF (NONE SEEN); SQUAMOUS EPITHELIAL NONE SEEN HPF (0-4); WHITE CELLS - URINE NONE SEEN HPF (0-1)
[2020-12-06 18:04] LABS: PLATELET COUNT 217 10x3/uL (130-400)
[2020-12-06 18:34] LABS: ALBUMIN 3.8 g/dL (3.4-5.0); ALKALINE PHOSPHATASE 119 U/L (30-120); ALT (SGPT) 23 U/L (10-68); AMYLASE - SERUM 47 U/L (25-115); BILIRUBIN - TOTAL 0.55 mg/dL (0.2-1.3); CALCIUM 9.1 mg/dL (8.5-10.1); CARBON DIOXIDE 28.3 mmol/L (21.0-32.0); CHLORIDE - SERUM 96 mmol/L (98-107); CKMB 1.6 U/L (0.0-3.6); CREATINE KINASE 88 UL (21-232); CREATININE - SERUM 1.6 mg/dL (0.6-1.3); LIPASE 462 U/L (73-393); POTASSIUM - SERUM 4.1 mmol/L (3.5-5.1); PRO BNP 996 pg/mL (0-450); PROTEIN - SERUM 7.3 g/dL (6.4-8.2); SODIUM 130 mmol/L (136-145); UREA NITROGEN 18 mg/dL (7-18); eGFR NON AFRICAN AMERICAN 45 mL/min (90-120)
[2020-12-06 18:38] LABS: CALC OSMOLALITY 290 mosm/kg (275-300); GLUCOSE 598 mg/dL (74-106); TROPONIN-I < 0.017 ng/mL (0.000-0.060)
[2020-12-06 18:44] LABS: APTT 35.2 SECONDS (22.8-39.4); INR 2.04 (0.85-1.17); PROTIME 21.4 SECONDS (11.6-15.0)
[2020-12-06 21:27] VITALS: BP 180/61
[2020-12-06 21:34] LABS: SARS-CoV-2 ANTIGEN NEGATIVE- SARS-COV-2 (NEGATIVE)
--- NOTE | 2020-12-06 23:30 | NUR ---
PT FROM ER VIA WHEELCHAIR, PT AMBULATED TO BED, PT RESP EVEN AND UNLABORED, NO DISTRESS NOTED, CL IN REACH, SR UP X 2.
[2020-12-06 23:37] VITALS: BP 176/89; BMI 26.9
[2020-12-07 04:00] VITALS: BP 173/62
[2020-12-07 05:04] LABS: BASOPHILS 0.3 % (0-2); HEMATOCRIT 33.6 % (42.0-54.0); HEMOGLOBIN 11.4 g/dL (13.5-17.5); IMMATURE GRANULOCYTES 0.5 % (0-5); LYMPHOCYTE ABS# 2.34 10x3/uL (1.32-3.57); MCH 30.3 pg (26.0-34.0); MCHC 33.9 g/dL (31.0-37.0); MCV 89.4 fL (80.0-100.0); MEAN PLATELET VOLUME 10.3 fL (7.4-10.4); MONOCYTES 5.5 % (2-11); NEUTROPHILS 64.7 % (40-80); PLATELET COUNT 206 10x3/uL (130-400); RBC 3.76 10x6/uL (4.20-6.10); RDW 13.3 % (11.5-14.5); WBC 8.7 10x3/uL (4.8-10.8)
[2020-12-07 05:52] LABS: ANION GAP 7.3 mmol/L (8-16); CALCIUM 8.4 mg/dL (8.5-10.1); CARBON DIOXIDE 26.4 mmol/L (21.0-32.0); CHOL - HDL RATIO 2.8 ratio (2.3-4.9); CREATININE - SERUM 1.2 mg/dL (0.6-1.3); LDL-HDL RATIO 0.6 ratio (1.5-3.5); MAGNESIUM - SERUM 1.9 mg/dL (1.8-2.4); PHOSPHOROUS 3.5 mg/dL (2.5-4.9); POTASSIUM - SERUM 3.7 mmol/L (3.5-5.1); THYROID STIMULATING HORMONE 2.37 uIU/mL (0.36-3.74)
--- NOTE | 2020-12-07 07:30 | NUR ---
PT LYING IN BED. RESP EVEN AND UNLABORED. AAO X4. PT DENIES PAIN OR ANY NEEDS AT THIS TIME. CALL LIGHT AND WATER WITHIN REACH. BED IN LOWEST POSITION. SIDE RAILS X2
[2020-12-07 09:08] VITALS: BP 160/63
[2020-12-07 14:47] VITALS: Ht 177.8 cm; Wt 83.5 kg
[2020-12-07 15:02] VITALS: BP 137/61
--- NOTE | 2020-12-07 19:20 | NUR ---
REPORT RECEIVED, PT CARE ASSUMED. PT SITTING UP IN BED, AAOX4, WATCHING TV. REQUESTING DIET COLA, PROVIDED. DENIES ANY OTHER NEEDS AT THIS TIME. BED IN LOWEST, SRX1, CALL LIGHT WITHIN REACH. CPOC.
[2020-12-07 20:57] VITALS: BP 148/58
[2020-12-08 06:14] VITALS: BP 161/62
[2020-12-08 06:33] LABS: BASOPHILS 0.4 % (0-2); EOSINOPHILS 2.3 % (0-7); HEMATOCRIT 35.2 % (42.0-54.0); HEMOGLOBIN 11.7 g/dL (13.5-17.5); IMMATURE GRANULOCYTES 0.3 % (0-5); LYMPHOCYTE ABS# 2.12 10x3/uL (1.32-3.57); LYMPHOCYTES 23.7 % (15-50); MCH 30.4 pg (26.0-34.0); MCHC 33.2 g/dL (31.0-37.0); MEAN PLATELET VOLUME 10.6 fL (7.4-10.4); MONOCYTES 5.4 % (2-11); NEUTROPHIL ABS# 6.06 10x3/uL (1.78-5.38); NEUTROPHILS 67.9 % (40-80); PLATELET COUNT 208 10x3/uL (130-400); RBC 3.85 10x6/uL (4.20-6.10); RDW 13.7 % (11.5-14.5); WBC 8.9 10x3/uL (4.8-10.8)
[2020-12-08 06:37] LABS: MCV 91.4 fL (80.0-100.0)
[2020-12-08 06:45] LABS: ANION GAP 9.9 mmol/L (8-16); CALCIUM 8.2 mg/dL (8.5-10.1); CREATININE - SERUM 1.1 mg/dL (0.6-1.3); PHOSPHOROUS 3.5 mg/dL (2.5-4.9); POTASSIUM - SERUM 3.9 mmol/L (3.5-5.1)
--- NOTE | 2020-12-08 07:10 | NUR ---
Lying in bed, awake/alert/oriented, t/r self ad nancy, cont of b/b with BRPs per self ad nancy, denies pain/other discomfort at this time, call light/phone/water within reach, no s/s of acute distress observed.
[2020-12-08] MEDS ORDERED: GLUCOPHAGE500 MG PO (09:15)
[2020-12-08 09:37] VITALS: BP 162/72
--- NOTE | 2020-12-08 13:15 | NUR ---
Provided written/verbal discharge instructions/education to pt, pt verbalized understanding of instructions, discontinued iv access/cardiac telemetry monitoring, no s/s of acute distress observed.
--- NOTE | 2020-12-08 13:45 | NUR ---
Discharged home to self care in stable condition via self ambulation accompanied by hospital staff, no s/s of acute distress observed.
--- NOTE | 2020-12-08 15:00 | NUR ---
Pt unable to warehouse order picker prescription at his regular pharmacy, per special request called prescription for metformin to [facility] at [phone]
--- NOTE | 2020-12-08 18:04 | MORECARE ---
CASE MANAGEMENT DISCHARGE SUMMARY PATIENT: TOMAS MOLINA UNIT: [id number] ADM DATE: 12/06/20 AGE: 75 : 45 SEX: M ROOM/BED: D.2134 AUTHOR: BALA,DOC PHYSICIAN: REFERRING PHYSICIAN: JUAN KIRKPATRICK MD DATE OF SERVICE: 12/08/20 Case Management Discharge Planning Summary COMMENTS ENTERED DATE: 12/08/20 17:52 CT COMMENT TYPE: Discharge Planning REVIEWER: Mohsen Clayton CM met with patient to complete DC plan and to evaluate needs. Patient lives independently with family. Patient stated that his PCP, Dr. Tamayo has retired and he now receives primary medical services through Dr. Tamayo's clinic. Patient stated that his pharmacy is [facility]. At discharge, the patient plans to return home and feels this is a safe discharge. CM discussed availability of home health, rehab services, and medical equipment. Patient declined HHS, SNF, IPR, and DME. Patient voiced no other needs at this time and is satisfied with DC plan. Transportation provider at discharge will be with his spouse, Shruthi Molina ([phone]). DC IMM delivered, explained, signed by the patient, and placed in chart. Signed form also left with the patient. CM will continue to follow and will assist as needed with dc plans/needs. DCP REVIEW SUMMARY ANTICIPATED D/C DATE: 12/08/2020 EXPECTED LOS : 2 CASE STATUS: DCP Initiated INITIAL REVIEW: 12/06/2020 INITIAL REVIEWER: Mohsen Clayton FINAL DISCHARGE DISPOSITION: : FINAL REVIEWER: FINAL REVIEW DATE: DCP Focus Questions & Answers DCP REV -DCP Review Added on: 12/08/20 6:01 pm QUESTION: ANSWER DCP Evaluation Patient gives permission to discuss discharge plans with: (name, relationship and number) : SHRUTHI MOLINA, SPOUSE, Physical Status: : Independent with ADL's Baseline cognitive status: : *Oriented to person, place, situation, time and present Patient's ability to cope with chronic illness : d. No chronic illness Does Patient have transportation to get home and to follow-up medical appointments when discharged from the hospital? : Yes Equipment in use: : None Mental health screen: : No mental health history Patient's current cognitive status: : *Oriented to person, place, situation, time and present Patient with capacity for self-care or can be cared for in same environment as prior to hospitalization? : Yes Patient and/or caregiver agree upon recommended discharge plan? : Yes Physical environment modification needed / anticipated for discharge: : No Planned post hospital services available for patient? : Yes Would patient like to participate in any Care Coordination programs (if applicable): : Not applicable DCP Re-evaluation Would patient like to participate in any Care Coordination programs (if applicable): : Not applicable PATIENT: TOMAS MOLINA ENCOUNTER: [id number] MEDICAL RECORD#: [id number] ADMISSION DATE: 12/06/2020 DISCHARGE DATE: 12/08/2020 ATTENDING MD: YOON: 1945- AGE: 75 MARITAL STATUS: M DC PLAN ID: [id number] FACILITY: [facility] PRINTED ON: 12/08/20 18:04 CT All edits/amendments must be made on the electronic document DICTATION DATE: 12/08/201803 HYBRID CORN BREEDER: GARRETT 12/08/201803 RPT#: [id number] DC DATE:12/08/20 STATUS: DIS IN [facility] [address] [place] [address] END OF REPORT
--- NOTE | 2020-12-11 06:51 | MORECARE ---
CASE MANAGEMENT DISCHARGE SUMMARY PATIENT: TOMAS MOLINA UNIT: [id number] ADM DATE: 12/06/20 AGE: 75 : 45 SEX: M ROOM/BED: D.2134 AUTHOR: BALA,DOC PHYSICIAN: REFERRING PHYSICIAN: JUAN KIRKPATRICK MD DATE OF SERVICE: 12/11/20 Case Management Discharge Planning Summary COMMENTS ENTERED DATE: 12/08/20 17:52 CT COMMENT TYPE: Discharge Planning REVIEWER: Mohsen Clayton CM met with patient to complete DC plan and to evaluate needs. Patient lives independently with family. Patient stated that his PCP, Dr. Tamayo has retired and he now receives primary medical services through Dr. Tamayo's clinic. Patient stated that his pharmacy is [facility]. At discharge, the patient plans to return home and feels this is a safe discharge. CM discussed availability of home health, rehab services, and medical equipment. Patient declined HHS, SNF, IPR, and DME. Patient voiced no other needs at this time and is satisfied with DC plan. Transportation provider at discharge will be with his spouse, Shruthi Molina ([phone]). DC IMM delivered, explained, signed by the patient, and placed in chart. Signed form also left with the patient. CM will continue to follow and will assist as needed with dc plans/needs. DCP REVIEW SUMMARY ANTICIPATED D/C DATE: 12/08/2020 EXPECTED LOS : 2 CASE STATUS: DCP Initiated INITIAL REVIEW: 12/06/2020 INITIAL REVIEWER: Mohsen Clayton FINAL DISCHARGE DISPOSITION: : FINAL REVIEWER: FINAL REVIEW DATE: DCP Focus Questions & Answers DCP REV -DCP Review Added on: 12/08/20 6:01 pm QUESTION: ANSWER DCP Evaluation Patient gives permission to discuss discharge plans with: (name, relationship and number) : SHRUTHI MOLINA, SPOUSE, Physical Status: : Independent with ADL's Baseline cognitive status: : *Oriented to person, place, situation, time and present Patient's ability to cope with chronic illness : d. No chronic illness Does Patient have transportation to get home and to follow-up medical appointments when discharged from the hospital? : Yes Equipment in use: : None Mental health screen: : No mental health history Patient's current cognitive status: : *Oriented to person, place, situation, time and present Patient with capacity for self-care or can be cared for in same environment as prior to hospitalization? : Yes Patient and/or caregiver agree upon recommended discharge plan? : Yes Physical environment modification needed / anticipated for discharge: : No Planned post hospital services available for patient? : Yes Would patient like to participate in any Care Coordination programs (if applicable): : Not applicable DCP Re-evaluation Would patient like to participate in any Care Coordination programs (if applicable): : Not applicable PATIENT: TOMAS MOLINA ENCOUNTER: [id number] MEDICAL RECORD#: [id number] ADMISSION DATE: 12/06/2020 DISCHARGE DATE: 12/08/2020 ATTENDING MD: YOON: 1945- AGE: 75 MARITAL STATUS: M DC PLAN ID: [id number] FACILITY: [facility] PRINTED ON: 12/11/20 6:51 CT All edits/amendments must be made on the electronic document DICTATION DATE: 12/11/20650 NET[employer] SOFTWARE CONSULTANT: GARRETT 12/11/2051 RPT#: [id number] DC DATE:12/08/20 STATUS: DIS IN [facility] [address] [place] [address] END OF REPORT
== END 2020-12-08 13:45 | disposition home or self-care (01) | DRG 638 ==
LOC: D.ER 16:56 → D.M2 20:10
PROVIDERS: Emergency Medicine; Family Medicine; ADMIT Family Medicine; ATTEND Family Medicine
DX: E11.00 Type 2 diabetes mellitus with hyperosmolarity without nonketotic hyperglycemic-hyperosmolar coma (NKHHC) (principal); N17.9 Acute kidney failure, unspecified; E87.1 Hypo-osmolality and hyponatremia; I48.20 Chronic atrial fibrillation, unspecified; D64.9 Anemia, unspecified; I10 Essential (primary) hypertension; E78.5 Hyperlipidemia, unspecified; I73.9 Peripheral vascular disease, unspecified; Z79.01 Long term (current) use of anticoagulants; I25.10 Atherosclerotic heart disease of native coronary artery without angina pectoris